=== PATIENT | male | born 1965 | race Caucasian/White ===

== ENCOUNTER 2019-08-24 14:24 | Emergency (ER) | payer SELFPAY ==
[~2019-08-24] VITALS: Ht 175.3 cm; Wt 88.5 kg
[2019-08-24 14:46] VITALS: BP 116/61
== END 2019-08-24 17:29 | disposition left against medical advice (07) ==
LOC: ER 14:24
DX: M79.602 Pain in left arm (principal); Z53.21 Procedure and treatment not carried out due to patient leaving prior to being seen by health care provider
CPT/HCPCS: 93005

== ENCOUNTER 2020-12-03 23:03 | Emergency (ER) | payer MEDICAID ==
[~2020-12-03] VITALS: Ht 175.3 cm; Wt 87.0 kg
[2020-12-03] MEDS ORDERED: KETOROLAC 30MG/ML VIAL IM ONE (23:45)
[2020-12-04] MEDS ORDERED: NAPR-1176 MT (00:37)
[2020-12-04 00:41] VITALS: BP 178/93
== END 2020-12-04 01:00 | disposition home or self-care (01) ==
LOC: ER 23:03
DX: M25.562 Pain in left knee (principal); E78.00 Pure hypercholesterolemia, unspecified; X50.1XXA Overexertion from prolonged static or awkward postures, initial encounter; Y93.01 Activity, walking, marching and hiking; Y92.9 Unspecified place or not applicable; Z88.6 Allergy status to analgesic agent
CPT/HCPCS: 73562; 96372; 99283; J1885